=== PATIENT | female | born 1980 | race Caucasian/White ===

== ENCOUNTER 2021-09-20 06:25 | Emergency (ER) | payer OTHER ==
[2021-09-20] MEDS ORDERED: PERCOCET 5-3251 EACH PO (07:07)
[2021-09-20] MEDS ORDERED: VIBRAMYCIN100 MG PO (07:07)
== END 2021-09-20 08:07 | disposition home or self-care (01) ==
LOC: FER 06:25
DX: S61.311A Laceration without foreign body of left index finger with damage to nail, initial encounter (principal); E03.9 Hypothyroidism, unspecified; Z28.310 Unvaccinated for COVID-19; Z79.890 Hormone replacement therapy; Z88.0 Allergy status to penicillin; Z88.5 Allergy status to narcotic agent; X58.XXXA Exposure to other specified factors, initial encounter
CPT/HCPCS: 73120; J2001

== ENCOUNTER 2021-09-27 06:31 | Emergency (ER) | payer OTHER ==
[~2021-09-27 06:31] MED LIST: PERCOCET 5-3251 EACH PO; VIBRAMYCIN100 MG PO
[2021-09-27 09:14] LABS: BASOPHIL 0.4 % (0-2); EOSINOPHIL 0.9 % (0-5); HCT 37.1 % (37.0-47.0); HGB 12.3 g/dl (12.5-16.0); LYMPHOCYTE 22.1 % (15-48); MCH 31.1 pg (25.0-31.0); MCHC 33.2 g/dL (32.0-36.0); MCV 93.9 fL (78.0-100.0); NRBC 0; PLT 241 K/uL (150-400); RBC 3.95 M/uL (4.20-5.40); RDW 12.9 % (11.5-14.0); WBC 9.4 K/uL (4.0-10.5)
[2021-09-27 09:43] LABS: BILIRUBIN NEGATIVE (NEGATIVE); BLOOD 1+ Ery/uL (NEGATIVE); CLARITY CLEAR (CLEAR); COLOR YELLOW (YELLOW); GLUCOSE (U) NORMAL (NORMAL); LEUKOCYTES NEGATIVE Leu/uL (NEGATIVE); NITRITE NEGATIVE (NEGATIVE); PROTEIN NEGATIVE (NEGATIVE); SPECIFIC GRAVITY 1.025 (1.001-1.030); UROBILINOGEN 0.2 mg/dL (0.2-1.0)
[2021-09-27 09:59] LABS: BACTERIA 1+; URINARY RBC RARE; URINARY WBC RARE
[2021-09-27 10:02] LABS: ALBUMIN 3.6 g/dL (3.4-5.0); BILIRUBIN - TOTAL 0.3 mg/dL (0.2-1.0); BUN/CREAT RATIO (CALC) 13.2 RATIO; CREATININE 0.91 mg/dL (0.51-0.95); GLOBULIN (CALCULATION) 4.2 g/dL; POTASSIUM 4.1 mmol/L (3.5-5.1); TOTAL PROTEIN 7.8 g/dL (6.4-8.2)
[2021-09-27] MEDS ORDERED: PEPCID AC20 MG PO (10:18)
== END 2021-09-27 10:33 | disposition home or self-care (01) ==
LOC: FER 06:31
PROVIDERS: Emergency Medicine
DX: R10.31 Right lower quadrant pain (principal); Z88.0 Allergy status to penicillin; Z88.1 Allergy status to other antibiotic agents; Z28.310 Unvaccinated for COVID-19
CPT/HCPCS: 36415; 80053; 81001; 83690; 85025